=== PATIENT | female | born 1965 | race Asian ===

== ENCOUNTER 2017-11-12 08:23 | Outpatient (CLI) | payer BC | END 2017-11-12 08:24 | disposition home or self-care (01) | LOC: BICMAMMO 08:23 | PROVIDERS: ATTEND Internal Medicine | DX: Z12.31 Encounter for screening mammogram for malignant neoplasm of breast (principal); Z13.820 Encounter for screening for osteoporosis | CPT/HCPCS: 77063; 77067; 77080 ==

== ENCOUNTER 2018-12-09 12:33 | Emergency (ER) | payer BC ==
[2018-12-09] MEDS ORDERED: Acetaminophen 500 MG TAB ONE (12:57)
--- NOTE | 2018-12-09 14:44 | RAD ---
RADIOGRAPH RIGHT HAND 3 VIEWS: Date: 12/09/18 HISTORY: 53-year-old female status post acute traumatic injury to the right hand from fall. FINDINGS: No acute fracture identified. No dislocation. 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 IMPRESSION: 1. No acute fracture. 2. 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 POS: [facility]
== END 2018-12-09 14:00 | disposition home or self-care (01) ==
LOC: SCSER 12:33
DX: S09.90XA Unspecified injury of head, initial encounter (principal); S60.221A Contusion of right hand, initial encounter; E11.9 Type 2 diabetes mellitus without complications; W18.30XA Fall on same level, unspecified, initial encounter; Y93.73 Activity, racquet and hand sports; Y99.8 Other external cause status

== ENCOUNTER 2018-12-09 13:48 | Outpatient (CLI) | payer BC ==
--- NOTE | 2018-12-09 16:00 | RAD ---
RADIOGRAPH CHEST 2 VIEWS: HISTORY: 53-year-old female with cough. FINDINGS: There is no air space density, pulmonary edema, pleural effusion, pneumothorax, or cardiomegaly. IMPRESSION: No acute cardiopulmonary findings. sendy POS: [facility]
== END 2018-12-09 13:49 | disposition home or self-care (01) ==
LOC: SCSRAD 13:48
PROVIDERS: ATTEND Internal Medicine
DX: R05 Cough (principal)
CPT/HCPCS: 71046

== ENCOUNTER 2019-03-11 08:03 | Outpatient (CLI) | payer BC ==
--- NOTE | 2019-03-11 09:54 | MMO ---
Bilateral MAMMO Bilat Screen [facility]. CLINICAL HISTORY: Patient is 54 years old and is seen for screening. The patient has no family history of breast cancer. The patient has no personal history of cancer. VIEWS: The views performed were: bilateral craniocaudal with tomosynthesis and bilateral mediolateral oblique with tomosynthesis. FILMS COMPARED: The present examination has been compared to prior imaging studies performed at [facility] on 12/19/2011, 07/17/2013, 06/26/2016 and 11/12/2017. MAMMOGRAM FINDINGS: There are scattered fibroglandular densities. There are stable benign appearing calcifications seen in both breasts. There are no suspicious masses, suspicious calcifications, or new areas of architectural distortion. IMPRESSION: THERE IS NO MAMMOGRAPHIC EVIDENCE OF MALIGNANCY. A ROUTINE FOLLOW-UP MAMMOGRAM IN 1 YEAR IS RECOMMENDED. THE RESULTS OF THIS EXAM WERE SENT TO THE PATIENT. ACR BI-RADS Category 2 - Benign finding MAMMOGRAPHY NOTE: 1. A negative mammogram report should not delay a biopsy if a dominant of clinically suspicious mass is present. 2. Approximately 10% to 15% of breast cancers are not detected by mammography. 3. Adenosis and dense breasts may obscure an underlying neoplasm.
== END 2019-03-11 08:04 | disposition home or self-care (01) ==
LOC: BICMAMMO 08:03
PROVIDERS: ATTEND Internal Medicine
DX: Z12.31 Encounter for screening mammogram for malignant neoplasm of breast (principal)
CPT/HCPCS: 77063; 77067

== ENCOUNTER 2024-10-29 13:41 | Outpatient (CLI) | payer BC | END 2024-10-29 13:42 | disposition home or self-care (01) | LOC: BICMAMMO 13:41 | PROVIDERS: ATTEND Internal Medicine | DX: Z12.31 Encounter for screening mammogram for malignant neoplasm of breast (principal) | CPT/HCPCS: 77063; 77067 ==